=== PATIENT | female | born 1965 | race Two or more races ===

== ENCOUNTER 2018-12-26 22:22 | Emergency (ER) | payer MEDICAID ==
[~2018-12-26] VITALS: Ht 165.1 cm; Wt 79.4 kg
[2018-12-26 23:20] LABS: Basophils # (auto) 0.1 uL; Eosinophils # (auto) 0.3 uL; Eosinophils % (auto) 2.2 % (0.0-7.0); Hematocrit 43.8 % (36.0-46.0); Hemoglobin 14.4 g/dL (12.2-16.2); Lymphocytes # (auto) 2.9 uL; Lymphocytes % (auto) 25.5 % (10.0-50.0); Mean Corpuscular Hemoglobin 26.7 pg (28.0-32.0); Mean Corpuscular Hgb Conc. 32.8 g/dL (32.0-36.0); Mean Corpuscular Volume 81.3 fL (80.0-100.0); Monocytes % (auto) 8.9 % (0.0-12.0); Neutrophils % (auto) 62.4 % (37.0-80.0); Platelet Count (auto) 230 10^3/uL (140-450); Red Blood Cells 5.39 10^6/uL (4.0-5.20); Red Cell Distribution Width 15.6 % (11.8-14.3); White Blood Cell 11.2 10^3/uL (4.4-10.8)
[2018-12-26 23:40] LABS: Calcium 8.7 mg/dL (8.5-10.1); Chloride 106 mmol/L (98-107); Potassium 4.2 mmol/L (3.5-5.1); Sodium 139 mmol/L (136-145)
[2018-12-26 23:48] LABS: Alanine Aminotransferase 17 U/L (13-56); Albumin 3.8 g/dL (3.4-5.0); Alkaline Phosphatase 105 U/L (45-117); Anion Gap 7 (5-15); Aspartate Aminotransferase 7 U/L (15-37); BUN/Creatinine Ratio 36.4; Bilirubin, Total 0.2 mg/dL (0.2-1.0); Blood Urea Nitrogen 16 mg/dL (7-18); Carbon Dioxide 26 mmol/L (21-32); GFR African American 193 mL/min; GFR Non-African American 160 mL/min; Glucose 103 mg/dL (74-106); Magnesium 2.4 mg/dL (1.6-2.6); Total Protein 7.4 g/dL (6.4-8.2)
[2018-12-27 09:35] LABS: Urine Bacteria NONE SEEN /hpf (None Seen); Urine Blood Negative /uL (Negative); Urine Specific Gravity 1.017 (1.001-1.035); Urine WBC 1 /hpf (0 - 5)
[2018-12-27 10:27] VITALS: BP 119/63
== END 2018-12-27 10:34 | disposition home or self-care (01) ==
LOC: ER 22:28
DX: R42 Dizziness and giddiness (principal); R51 Headache; H53.8 Other visual disturbances
CPT/HCPCS: 36415; 70450; 80053; 81001; 83735; 84484; 84702; 85025; 93005

== ENCOUNTER 2024-07-13 19:05 | Emergency (ER) | payer MEDICAID ==
[~2024-07-13] VITALS: Ht 162.6 cm; Wt 81.8 kg
--- NOTE | 2024-07-13 19:20 | ED.PDOC ---
GI ASSESSMENT HPI Comments A 59 year old female brought in by EMS presents to the ED with a chief complaint of epigastric pain onset today around 14:00. Per EMS, patient was given 4 mg Zofran in route. Patient began experiencing epigastric pain today around 14:00 as well as nausea, vomiting. Last bowel movement was today around 13:00. Denies any past medical history as well as diarrhea, constipation, headache, chest pain, shortness of breath, dysuria, hematuria. No other symptoms or modifying factors present at this time. Chief Complaint: Abdominal Pain Time Seen by MD: 19:03 Reviewed Notes: Medications, Allergies Allergies: Coded Allergies: NO KNOWN ALLERGIES (Unverified , 12/27/18) Information Source: Patient, Emergency Med Personnel Mode of Arrival: EMS Timing: Hours Duration: Since onset Prehospital treatment: Other (Zogran 4 mg) Severity: Moderate Recent: None Pain Location: Diffuse Associated sign and symptoms: Nausea, Vomiting, Abdominal Pain Past Medical History PAST MEDICAL HISTORY: Denies Surgical History: DATA ANALYTICS SPECIALIST History: Denies all DATA ANALYTICS SPECIALIST Hx Family History Family History: Unknown Social History Smoker: Non-Smoker Alcohol: Denies ETOH Use Drugs: Denies Drug Use Lives In: Home Constitutional: denies: chills, diaphoresis, fatigue, fever, malaise, sweats, weakness, others EENTM: denies: blurred vision, double vision, ear bleeding, ear discharge, ear drainage, ear pain, ear ringing, eye pain, eye redness, hearing loss, mouth pain , mouth swelling, nasal discharge, nose bleeding, nose congestion, nose pain, photophobia, tearing, throat pain, throat swelling, voice changes, others Respiratory: denies: cough, hemoptysis, orthopnea, SOB at rest, shortness of breath, SOB with excertion, stridor, wheezing, others Cardiovascular: denies: chest pain, dizzy spells, diaphoresis, Dyspnea on exertion, edema, irregular heart beat, left arm pain, lightheadedness, palpitations, PND, syncope, others Gastrointestinal: reports: abdominal pain, nausea, vomiting; denies: abdomen distended, blood streaked bowels, constipated, diarrhea, dysphagia, difficulty swallowing, hematemesis, melena, poor appetite, poor fluid intake, rectal bleeding, rectal pain, others Genitourinary: denies: abnormal vagina bleeding, burning, dyspareunia, dysuria, flank pain, frequency, hematuria, incontinence, pain, , vagina discharge, urgency, others Neurological: denies: dizziness, fainting, headache, left sided numbness, left sided weakness, numbness, paresthesia, pre-existing deficit, right sided numbness, right sided weakness, seizure, speech problems, tingling, tremors, weakness, others Musculoskeletal: denies: back pain, gout, joint pain, joint swelling, muscle pain, muscle stiffness, neck pain, others Integumetry: denies: bruises, change in color, change in hair/nails, dryness, laceration, lesions, lumps, rash, wounds, others Allergic/Immunocompromised: denies: Difficulty Healing, Frequent Infections, Hives, Itching, others Hematologic/Lymphatic: denies: anemia, blood clots, easy bleeding, easy bruising, swollen glands, others Endocrine: denies: excessive hunger, excessive sweating, excessive thirst, excessive urination, flushing, intolerance to cold, intolerance to heat, unexplained weight gain, unexplained weight loss, others Psychiatric: denies: anxiety, bipolar disorder, depression, hopeless, panic disorder, schizophrenia, sleepless, suicidal, others All Other Systems: Reviewed and Negative Physical Exam General Appearance: Mild Distress, No Apparent Distress, Other (appears uncomfortable) HEENT: Normal ENT Inspection, Pharynx Normal, TMs Normal Neck: Full Range of Motion, Non-Tender, Normal, Normal Inspection Respiratory: Chest Non-Tender, Lungs Clear, No Accessory Muscle Use, No Respiratory Distress, Normal Breath Sounds Cardiovascular: No Edema, No JVD, No Murmur, No Gallop, Normal Peripheral Pulses, Regular Rate/Rhythm Breast Exam: Deferred Gastrointestinal: Diffuse, Epigastric (tenderness), No Organomegaly, No Pulsatile Mass, Normal Bowel Sounds Genitalia: Deferred Pelvic: Deferred Rectal: Deferred Extremities: No calf tenderness, Normal capillary refill, Normal inspection, Normal range of motion, Non-tender, No pedal edema Musculoskeletal : Apperance: Normal Neurologic: Alert, 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 Was a procedure done?: No GI differential Dx Differential Diagnosis: Gastroenteritis, Inflammatory BD, UTI, Dehydration, Electrolyte Imbalance, Hypovolemia, Malnutrition X-Ray, Labs, Meds, VS Vital Signs Date Time Temp Pulse Resp B/P (MAP) Pulse Ox O2 Delivery O2 Flow Rate FiO2 07/13/24 21:27 72 18 128/82 07/13/24 19:59 97.8 84 24 138/70 (92) 100 97.8 07/13/24 19:59 84 24 100 Room Air* 0 21 07/13/24 19:58 84 24 138/70 07/13/24 19:06 97.8 84 24 138/70 (92) 100 Lab Test 07/13/24 19:23 Range/Units White Blood Count 22.1 H 4.4-10.8 10^3/uL Red Blood Count 5.59 H 4.0-5.20 10^6/uL Hemoglobin 15.8 12.2-16.2 g/dL Hematocrit 46.9 H 36.0-46.0 % Mean Corpuscular Volume 83.9 80.0-100.0 fL Mean Corpuscular Hemoglobin 28.3 28.0-32.0 pg Mean Corpuscular Hemoglobin Concent 33.8 32.0-36.0 g/dL Red Cell Distribution Width 13.5 11.8-14.3 % Platelet Count 264 140-450 10^3/uL Mean Platelet Volume 8.3 6.9-10.8 fL Neutrophils (%) (Auto) 83.8 H 37.0-80.0 % Lymphocytes (%) (Auto) 8.8 L 10.0-50.0 % Monocytes (%) (Auto) 6.5 0.0-12.0 % Eosinophils (%) (Auto) 0.6 0.0-7.0 % Basophils (%) (Auto) 0.3 0.0-2.0 % Neutrophils # (Auto) 18.5 H 1.6-8.6 10 ^3/uL Lymphocytes # (Auto) 2.0 0.4-5.4 10 ^3/uL Monocytes # (Auto) 1.4 H 0-1.3 10 ^3/uL Eosinophils # (Auto) 0.1 0-0.8 10 ^3/uL Basophils # (Auto) 0.1 0-0.2 10 ^3/uL Nucleated Red Blood Cells 0.1 % Sodium Level 138 136-145 mmol/L Potassium Level 4.0 3.5-5.1 mmol/L Chloride Level 105 98-107 mmol/L Carbon Dioxide Level 26 20-31 mmol/L Anion Gap 7 5-15 Blood Urea Nitrogen 12 9-23 mg/dL Creatinine 0.54 L 0.550-1.02 mg/dL Glomerular Filtration Rate Calc 107 >90 mL/min BUN/Creatinine Ratio 22.2 H 10.0-20.0 Serum Glucose 131 H 74-106 mg/dL Calcium Level 10.4 8.7-10.4 mg/dL Total Bilirubin 0.5 0.2-1.0 mg/dL Aspartate Amino Transferase (AST) 18 13-40 U/L Alanine Aminotransferase (ALT) 24 7-40 U/L Alkaline Phosphatase 127 H 46-116 U/L Troponin I High Sensitivity < 3 L </=34 ng/L Total Protein 7.6 5.7-8.2 g/dL Albumin 4.9 H 3.2-4.8 g/dL Lipase 37 12-53 U/L Current Medications Medications (Trade) Dose Ordered Sig/Nadine Route Start Time Stop Time Status Last Admin Sodium Chloride 1,000 ml @ 1,000 mls/hr Q1H ONCE IV 07/13/24 19:15 07/13/24 20:14 DC 07/13/24 19:58 Morphine Sulfate 4 mg ONCE ONCE IV 07/13/24 19:15 07/13/24 19:16 DC 07/13/24 19:58 Ondansetron HCl (Zofran) 4 mg ONCE ONCE IV 07/13/24 19:15 07/13/24 19:16 DC 07/13/24 19:57 Pantoprazole Sodium (Protonix) 40 mg ONCE ONCE IV 07/13/24 19:15 07/13/24 19:16 DC 07/13/24 19:57 [place] [address] Ph: [phone] DIAGNOSTIC IMAGING Diagnostic Imaging Report : [id number] Signed PATIENT: KYM MCAKY ACCT: [id number] UNIT: [id number] : 1965 LOC: ER ROOM / BED: / AGE / SEX: 59 / F ADM STATUS: REG ER SERVICE 16 ORDERING PHYSICIAN: DRISS GALICIA MD PROCEDURE(s): ABPLIV - CT AB PEL WITH IV CON ONLY REASON: epigastric pain ORDER NUMBER(s): [id number], ACCESSION NUMBER(s): [id number] EXAMINATION: AP portable chest radiograph CLINICAL HISTORY: epigastric pain COMPARISON: None TECHNIQUE: SINGLE-VIEW CHEST X-RAY FINDINGS: Prominent markings noted medially in the right lower lobe may represent atelectasis or developing infiltrate. IMPRESSION: 1. Prominent bronchovascular markings in the right lower lobe medially. May represent developing infiltrate or atelectasis. HS:Y ATED BY: MARCELA LEA Jr., DO DICTATED DATE/TIME: 07/13/242046 SIGNED BY: MARCELA LEA Jr., DO SIGNED DATE/TIME: 07/13/242046 CC: [place] [address] Ph: [phone] DIAGNOSTIC IMAGING Diagnostic Imaging Report : [id number] Signed PATIENT: KYM MCKAY ACCT: [id number] UNIT: [id number] : 1965 LOC: ER ROOM / BED: / AGE / SEX: 59 / F ADM STATUS: REG ER SERVICE 16 ORDERING PHYSICIAN: DRISS GALICIA MD PROCEDURE(s): CXRP - CHEST PORTABLE REASON: epigastric pain ORDER NUMBER(s): [id number], ACCESSION NUMBER(s): [id number] EXAMINATION: AP portable chest radiograph CLINICAL HISTORY: epigastric pain COMPARISON: None TECHNIQUE: SINGLE-VIEW CHEST X-RAY FINDINGS: Prominent markings noted medially in the right lower lobe may represent atelectasis or developing infiltrate. IMPRESSION: 1. Prominent bronchovascular markings in the right lower lobe medially. May represent developing infiltrate or atelectasis. HS:Y ATED BY: MARCELA LEA Jr., DO DICTATED DATE/TIME: 07/13/242046 SIGNED BY: MARCELA LEA Jr., DO SIGNED DATE/TIME: 07/13/242046 CC: Time of 1ST Reevaluation: 19:33 Reevaluation 1ST: Unchanged Patient Education/Counseling: Diagnosis, Treatment, Prognosis Family Education/Counseling: No Family Present Additional Information The following tests were ordered, and results were reviewed by me: CBC, CMP, LIPASE, TROP, XY CHEST, CT AB PEL W IV CON I reviewed and agreed with the following test results read by other providers: XY CHEST, CT AB PEL W IV CON Independent Historian: EMS I discussed treatment and results with medical personnel, patient Departure 1 Departure Time of Disposition: 22:06 (Patient with intractable abdominal pain. CT scan initially has the chest x-ray report attached to it. There is no CT scan currently being read. We will sign out patient to the nighttime doctor pending CT read.) Impression: Primary Impression: Epigastric pain Disposition: 30 STILL A PATIENT Condition: Serious Critical Care Note Critical Care Time?: No Stability Stability form required: No I personally scribed for DRISS GALICIA MD ([email or web address]) on 07/13/24 at 19:20. Electronically submitted by Sanjana Bobby ([email or web address]). I personally scribed for DRISS GALICIA MD ([email or web address]) on 07/13/24 at 21:11. Electronically submitted by Sanjana Bobby ([email or web address]). I personally scribed for DRISS GALICIA MD ([email or web address]) on 07/13/24 at 21:12. Electronically submitted by Sanjana Bobby ([email or web address]). DRISS GALICIA MD Jul 13, 2024 19:20
[2024-07-13 19:38] LABS: Basophils # (auto) 0.1 10 ^3/uL (0-0.2); Basophils % (auto) 0.3 % (0.0-2.0); Eosinophils # (auto) 0.1 10 ^3/uL (0-0.8); Eosinophils % (auto) 0.6 % (0.0-7.0); Hematocrit 46.9 % (36.0-46.0); Hemoglobin 15.8 g/dL (12.2-16.2); Lymphocytes % (auto) 8.8 % (10.0-50.0); Mean Corpuscular Hemoglobin 28.3 pg (28.0-32.0); Mean Corpuscular Hgb Conc. 33.8 g/dL (32.0-36.0); Mean Corpuscular Volume 83.9 fL (80.0-100.0); Monocytes # (auto) 1.4 10 ^3/uL (0-1.3); Monocytes % (auto) 6.5 % (0.0-12.0); Neutrophils # (auto) 18.5 10 ^3/uL (1.6-8.6); Neutrophils % (auto) 83.8 % (37.0-80.0); Nucleated Red Blood Cells % 0.1 %; Platelet Count (auto) 264 10^3/uL (140-450); Red Blood Cells 5.59 10^6/uL (4.0-5.20); Red Cell Distribution Width 13.5 % (11.8-14.3); White Blood Cell 22.1 10^3/uL (4.4-10.8)
[2024-07-13 19:57] LABS: Alanine Aminotransferase 24 U/L (7-40); Anion Gap 7 (5-15); Aspartate Aminotransferase 18 U/L (13-40); BUN/Creatinine Ratio 22.2 (10.0-20.0); Blood Urea Nitrogen 12 mg/dL (9-23); Carbon Dioxide 26 mmol/L (20-31); Chloride 105 mmol/L (98-107); Sodium 138 mmol/L (136-145)
[2024-07-13] MEDS: PANTOPRAZOLE 40 MG/10 ML VIAL INJ IV ONE (19:57)
[2024-07-13] MEDS: ONDANSETRON HCL 4 MG/2 ML VIAL IV ONE (19:57)
[2024-07-13 19:58] LABS: Albumin 4.9 g/dL (3.2-4.8); Alkaline Phosphatase 127 U/L (46-116); Bilirubin, Total 0.5 mg/dL (0.2-1.0); Calcium 10.4 mg/dL (8.7-10.4); Glucose 131 mg/dL (74-106); Total Protein 7.6 g/dL (5.7-8.2)
[2024-07-13] MEDS: MORPHINE SULFATE 4 MG/ML SYR/VIAL IV ONE (19:58)
[2024-07-13] MEDS: SODIUM CHLORIDE 0.9% 1,000 ML IV ONE (19:58)
[2024-07-13 19:59] VITALS: PULSE 84; RESP 24; TEMP 97.8; O2SAT 100
[2024-07-13 20:08] LABS: Lipase 37 U/L (12-53)
[2024-07-13] MEDS: IOHEXOL 300 MG/ML 100ML BOTTLE IJ ONE (20:31)
--- NOTE | 2024-07-13 20:49 | DVH ---
EXAMINATION: AP portable chest radiograph CLINICAL HISTORY: epigastric pain COMPARISON: None TECHNIQUE: SINGLE-VIEW CHEST X-RAY FINDINGS: Prominent markings noted medially in the right lower lobe may represent atelectasis or developing inf iltrate. IMPRESSION: 1. Prominent bronchovascular markings in the right lower lobe medially. May represent developing infi ltrate or atelectasis. HS:Y
[2024-07-13 21:27] VITALS: BP 128/82; PULSE 72; RESP 18
== END 2024-07-14 00:28 | disposition home or self-care (01) ==
LOC: EDBD 19:05 → ER 19:05
DX: R10.13 Epigastric pain (principal); N28.1 Cyst of kidney, acquired; K76.89 Other specified diseases of liver
CPT/HCPCS: 36415; 71045; 74177; 80053; 83690; 84484; 85025; 96361; 96374; 96375; 99285; J2270; J2405; J2470; J7030; Q9967